=== PATIENT | female | born 1965 | race African-American/Black ===

== ENCOUNTER 2024-04-11 11:55 | Emergency (ER) | payer BC, SELFPAY ==
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
[2024-04-11 11:58] VITALS: BP 130/83; PULSE 76; RESP 20; TEMP 36.2; O2SAT 94
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
[2024-04-11 13:00] VITALS: BP 118/62; PULSE 85; RESP 18; O2SAT 100
[2024-04-11] MEDS: ONDANSETRON HCL ODT 4 MG TABLET PO ×2 (13:08→13:52)
[2024-04-11] MEDS: HYDROmorphone HCL INJ (*CRX) 2 MG/ML VIAL 0.5 MG IM ×2 (13:09→14:55)
[2024-04-11 13:30] VITALS: BP 123/75; PULSE 74; RESP 16; O2SAT 99
[2024-04-11 14:00] VITALS: BP 120/78; PULSE 69; RESP 16; O2SAT 99
[2024-04-11 14:28] VITALS: BP 130/80; PULSE 57; RESP 16; TEMP 36.4; O2SAT 95
[2024-04-11] MEDS: TETANUS,DIPHTHERIA,AC PERTUSSIS ADULT 0.5 ML (ADACEL) IM (14:41)
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
[2024-04-11 15:33] VITALS: BP 153/81; PULSE 61; PULSE 89; RESP 16; TEMP 36.8; O2SAT 100; O2SAT 99
== END 2024-04-11 15:33 | disposition home or self-care (01) ==
PROVIDERS: Emergency Provider Internal Medicine Critical Care Medicine
DX: S43.401A Unspecified sprain of right shoulder joint, initial encounter (principal); S20.311A Abrasion of right front wall of thorax, initial encounter; Z23 Encounter for immunization; X58.XXXA Exposure to other specified factors, initial encounter
CPT/HCPCS: 71045; 73030; 73200; 90471; 90715; 96372; 99284; A4565; A9270; J1170